=== PATIENT | male | born 1960 | race Caucasian/White ===

== ENCOUNTER 2017-08-15 19:22 | Observation (INO) ==
--- NOTE | 2017-08-15 19:40 | Emergency Department Note ---
Disposition Clinical Impression: Acute bronchitis with bronchospasm, Hypokalemia Disposition: Admitted As Inpatient Condition: Good Referrals: Miriam Garcia CNP [Primary Care Provider] - Forms: ED Satisfaction Letter Time of Disposition: 22:24 URI/Sore Throat HPI - General Chief Complaint: ED Upper Respiratory Infection Stated Complaint: back pain, cough, congestion Time Seen by Provider: 08/15/17 19:35 Source: patient, EMS Mode of arrival: ambulatory Limitations: no limitations Nursing Notes Reviewed: Yes Vital Signs Reviewed: Yes - History of Present Illness HPI Narrative: 56-year-old white male who presents complaining of cough and difficulty breathing for 4 days. He states his chest feels congested. He states he is coughing up thick white yellowish sputum. He states last night he felt like he had a fever, he was chilling, and sweating. No nasal congestion. No sore throat or earache. He denies chest pain. He has some pain in his mid back. Worse with coughing. He has a mechanical aortic valve, and is on Coumadin. Pt Subjective Complaint: fever (Reactive), cough Onset (ago): day(s) (4) Duration: intermittent Severity: moderate Improves with: nothing Worsens with: nothing If sputum, description: yellow Context: multiple patients with similar complaints Associated symptoms: Reports: fever (Subjective), chills Treatments prior to arrival: none - Related Data Home Medications Medication Instructions Recorded Confirmed Gabapentin [Neurontin] 300 mg PO TID 04/27/15 08/15/17 Metoprolol [Lopressor] 100 mg PO BID 04/27/15 08/15/17 Warfarin [Coumadin] 6 mg PO 1800 04/27/15 08/15/17 Zolpidem [Ambien] 10 mg PO HS 04/27/15 08/15/17 Magnesium Oxide [Magnesium] 400 mg PO DAILY 04/19/16 08/15/17 Paroxetine [Paxil] 20 mg PO DAILY 04/19/16 08/15/17 Warfarin [Coumadin] 3 mg PO 1800 08/14/16 08/15/17 Baclofen 20 mg PO TID 08/15/17 08/15/17 Isosorbide DInitrate [Isosorbide 5 mg PO BID 08/15/17 08/15/17 Dinitrate] Mometasone/Formoterol [Dulera 100 1 puff IH BID 08/15/17 08/15/17 Mcg/5 Mcg Inhaler] Renal Vitamin [Renal Caps Softgel] 1 mg PO DAILY 08/15/17 08/15/17 amLODIPine [Norvasc] 5 mg PO DAILY 08/15/17 08/15/17 Allergies Allergy/AdvReac Type Severity Reaction Status Date / Time morphine AdvReac Palpitation Verified 07/22/17 15:24 s All systems ED: reviewed and negative except as stated. Constitutional: Reports: fever, chills Eyes: Denies: eye discharge ENT ED: Denies: ear pain, throat pain Cardiovascular: Denies: chest pain, palpitations Respiratory: Reports: cough, dyspnea, sputum production Gastrointestinal: Reports: nausea. Denies: abdominal pain, vomiting, diarrhea Genitourinary: Denies: urgency, dysuria, frequency Musculoskeletal: Reports: back pain Neurological: Denies: headache, weakness, numbness, paresthesias URI PMH - Past Medical History Medical history: Reports: hypertension Surgical history: Reports: appendectomy, coronary bypass (CABG), heart valve replacement Psychiatric history: Reports: depression - Social History Smoking Status: Never smoker Alcohol use: Reports: rarely Drug use: Reports: none Physical Exam - General Limitations: no limitations General appearance: alert, in no apparent distress - Head Head exam: atraumatic, normocephalic - Eye Eye exam: Present: PERRL, EOMI. Absent: scleral icterus, conjunctival injection - ENT ENT exam: normal oropharynx, mucous membranes moist, TM's normal bilaterally - Neck Neck exam: Present: normal inspection, full ROM, trachea midline. Absent: tenderness, lymphadenopathy - Chest Chest inspection: Present: normal inspection, symmetric chest wall rise - Respiratory Respiratory exam: Present: other (Decreased breath sounds in the right base and midlung field posteriorly. Basilar rales bilaterally.). Absent: respiratory distress, wheezes - Cardiovascular Cardiovascular exam: Present: regular rate, normal rhythm, normal heart sounds - Abdominal Exam Abdominal exam: Present: soft, Non-Tender, normal bowel sounds. Absent: organomegaly, mass - Extremities Exam Extremities exam: Present: normal inspection, full ROM, normal capillary refill. Absent: pedal edema, calf tenderness - Back Exam Back exam: Absent: CVA tenderness (R), CVA tenderness (L) - Neurological Exam Neurological exam: Present: alert, oriented X3. Absent: motor sensory deficit - Psychiatric Psychiatric exam: Present: normal affect, normal mood - Skin Skin exam: Present: warm, dry, intact, normal color. Absent: cyanosis, diaphoresis Course - Reevaluation(s) Reevaluation #1: Discussed with Dr. Martinez. Accepts admission. Time: 22:24 Vital Signs Temperature 97.0 F L 08/15/17 19:22 Pulse Rate 91 08/15/17 19:22 Respiratory Rate 18 08/15/17 19:22 Blood Pressure 137/92 08/15/17 19:22 O2 Sat by Pulse Oximetry 95 08/15/17 19:22 Temperature 97.0 F L 08/15/17 19:22 Pulse Rate 88 08/15/17 21:43 Respiratory Rate 16 08/15/17 21:43 Blood Pressure 135/77 08/15/17 21:43 O2 Sat by Pulse Oximetry 93 08/15/17 21:43 Oxygen Delivery Oxygen Delivery Room Air Upper Respiratory Infection - MDM Narrative Medical decision making narrative: Differential includes but is not limited to congestive heart failure, pneumonia , bronchitis, URI, pleural effusion - Lab Data Lab results reviewed: Yes I reviewed the patient's lab results. Result diagrams: 08/15/17 19:45 08/15/17 19:45 Lab Results 08/15/17 08/15/17 08/15/17 Range/Units 19:45 19:45 19:45 WBC 9.4 (4.3-11.1) K/mcL RBC 5.57 H (4.19-5.50) M/mcL Hgb 16.0 (12.9-16.9) g/dL Hct 46.6 (37.5-50.1) % MCV 83.7 (83.0-100.0) fL MCH 28.7 (28.0-33.3) pg MCHC 34.3 (31.6-35.5) g/dL RDW 14.9 H (11.5-14.5) % Plt Count 140 (140-400) K/mcL MPV 12.1 (9.4-12.4) fL Immature Gran % 0.3 (0-4) % Seg Neutrophils % 67.6 % Lymphocytes % 14.7 % Monocytes % 16.9 % Eosinophils % 0.2 % Basophils % 0.3 % Neutrophils # 6.4 (1.6-8.9) K/mcL Lymphocytes # 1.4 (0.6-4.6) K/mcL Monocytes # 1.6 H (0.0-1.3) K/mcL Eosinophils # 0.0 (0.0-0.6) K/mcL Basophils # 0.0 (0.0-0.2) K/mcL PT (9.4-12.1) Seconds INR Sodium 141 (136-145) mEq/L Potassium 3.1 L (3.5-4.5) mEq/L Chloride 108 (98-109) mEq/L Carbon Dioxide 21 (19-29) mEq/L BUN 16 (8-26) mg/dL Creatinine 1.22 (0.72-1.25) mg/dL Est GFR ( Amer) > 60 (> 60) Est GFR (Non-Af Amer) > 60 (> 60) BUN/Creatinine Ratio 13 (6-26) Glucose 126 H (70-99) mg/dL Calculated Osmolality 295 (280-300) Lactic Acid 1.4 (0.5-2.2) mmol/L Calcium 9.3 (8.6-10.8) mg/dL Total Bilirubin 0.8 (0.2-1.2) mg/dL AST 55 H (5-34) Units/L ALT 52 (0-55) Units/L Alkaline Phosphatase 72 (38-126) Units/L Troponin I (0-0.03) ng/mL B-Natriuretic Peptide (0-100) pg/mL Serum Total Protein 7.9 (6.0-8.3) g/dL Albumin 3.6 (3.5-5.0) g/dL Globulin 4.3 H (2.4-3.5) g/dL Albumin/Globulin Ratio 0.8 L (1.1-2.2) 08/15/17 08/15/17 08/15/17 Range/Units 19:45 19:45 19:45 WBC (4.3-11.1) K/mcL RBC (4.19-5.50) M/mcL Hgb (12.9-16.9) g/dL Hct (37.5-50.1) % MCV (83.0-100.0) fL MCH (28.0-33.3) pg MCHC (31.6-35.5) g/dL RDW (11.5-14.5) % Plt Count (140-400) K/mcL MPV (9.4-12.4) fL Immature Gran % (0-4) % Seg Neutrophils % % Lymphocytes % % Monocytes % % Eosinophils % % Basophils % % Neutrophils # (1.6-8.9) K/mcL Lymphocytes # (0.6-4.6) K/mcL Monocytes # (0.0-1.3) K/mcL Eosinophils # (0.0-0.6) K/mcL Basophils # (0.0-0.2) K/mcL PT 30.0 H (9.4-12.1) Seconds INR 2.7 Sodium (136-145) mEq/L Potassium (3.5-4.5) mEq/L Chloride (98-109) mEq/L Carbon Dioxide (19-29) mEq/L BUN (8-26) mg/dL Creatinine (0.72-1.25) mg/dL Est GFR ( Amer) (> 60) Est GFR (Non-Af Amer) (> 60) BUN/Creatinine Ratio (6-26) Glucose (70-99) mg/dL Calculated Osmolality (280-300) Lactic Acid (0.5-2.2) mmol/L Calcium (8.6-10.8) mg/dL Total Bilirubin (0.2-1.2) mg/dL AST (5-34) Units/L ALT (0-55) Units/L Alkaline Phosphatase (38-126) Units/L Troponin I 0.03 (0-0.03) ng/mL B-Natriuretic Peptide 11 (0-100) pg/mL Serum Total Protein (6.0-8.3) g/dL Albumin (3.5-5.0) g/dL Globulin (2.4-3.5) g/dL Albumin/Globulin Ratio (1.1-2.2) 08/15/17 Range/Units 21:37 WBC (4.3-11.1) K/mcL RBC (4.19-5.50) M/mcL Hgb (12.9-16.9) g/dL Hct (37.5-50.1) % MCV (83.0-100.0) fL MCH (28.0-33.3) pg MCHC (31.6-35.5) g/dL RDW (11.5-14.5) % Plt Count (140-400) K/mcL MPV (9.4-12.4) fL Immature Gran % (0-4) % Seg Neutrophils % % Lymphocytes % % Monocytes % % Eosinophils % % Basophils % % Neutrophils # (1.6-8.9) K/mcL Lymphocytes # (0.6-4.6) K/mcL Monocytes # (0.0-1.3) K/mcL Eosinophils # (0.0-0.6) K/mcL Basophils # (0.0-0.2) K/mcL PT (9.4-12.1) Seconds INR Sodium (136-145) mEq/L Potassium (3.5-4.5) mEq/L Chloride (98-109) mEq/L Carbon Dioxide (19-29) mEq/L BUN (8-26) mg/dL Creatinine (0.72-1.25) mg/dL Est GFR ( Amer) (> 60) Est GFR (Non-Af Amer) (> 60) BUN/Creatinine Ratio (6-26) Glucose (70-99) mg/dL Calculated Osmolality (280-300) Lactic Acid (0.5-2.2) mmol/L Calcium (8.6-10.8) mg/dL Total Bilirubin (0.2-1.2) mg/dL AST (5-34) Units/L ALT (0-55) Units/L Alkaline Phosphatase (38-126) Units/L Troponin I 0.03 (0-0.03) ng/mL B-Natriuretic Peptide (0-100) pg/mL Serum Total Protein (6.0-8.3) g/dL Albumin (3.5-5.0) g/dL Globulin (2.4-3.5) g/dL Albumin/Globulin Ratio (1.1-2.2) - Radiology Data Radiology results reviewed: Yes I reviewed the patient's radiology results. Impressions Chest X-Ray 08/15/17 19:36 IMPRESSION: Stable portable study. D/ / Joy Fitch Cha, MD / Joy Fitch Cha, MD Interpreting Provider: Joy Fitch Cha, MD - EKG Data EKG attestation: Yes I reviewed and interpreted this EKG. EKG results narrative: Sinus rhythm, rate of 87, left atrial enlargement, age indeterminant anterior [place] , inferior lateral ST segment depression consistent with ischemia. Rhythm strip shows a sinus rhythm with a rate of 87, [place] interval 124 ms, QRS 100 ms with no other ectopy as interpreted by me. This is compared to a tracing dated 04/28/15, the ST segment depression in the inferior laterally is slightly more pronounced.
[2017-08-15 19:52] LABS: Basophils % 0.3 %; Eosinophils % 0.2 %; Hematocrit 46.6 % (37.5-50.1); Immature Granulocytes % 0.3 % (0-4); Lymphocytes # 1.4 K/mcL (0.6-4.6); Lymphocytes % 14.7 %; Mean Corpuscular HGB Conc 34.3 g/dL (31.6-35.5); Mean Corpuscular Hemoglobin 28.7 pg (28.0-33.3); Mean Corpuscular Volume 83.7 fL (83.0-100.0); Mean Platelet Volume 12.1 fL (9.4-12.4); Monocytes # 1.6 K/mcL (0.0-1.3); Monocytes % 16.9 %; Neutrophils # 6.4 K/mcL (1.6-8.9); Platelet Count 140 K/mcL (140-400); Red Blood Count 5.57 M/mcL (4.19-5.50); Red Cell Distribution Width 14.9 % (11.5-14.5); Segmented Neutrophils % 67.6 %
[2017-08-15 20:01] LABS: INR 2.7
[2017-08-15 20:13] LABS: Alanine Aminotransferase 52 Units/L (0-55); Albumin 3.6 g/dL (3.5-5.0); Albumin/Globulin Ratio 0.8 (1.1-2.2); Alkaline Phosphatase 72 Units/L (38-126); Aspartate Amino Transferase 55 Units/L (5-34); BUN/Creatinine Ratio 13 (6-26); Bilirubin,Total 0.8 mg/dL (0.2-1.2); Blood Urea Nitrogen 16 mg/dL (8-26); Calcium 9.3 mg/dL (8.6-10.8); Carbon Dioxide 21 mEq/L (19-29); Chloride 108 mEq/L (98-109); Globulin 4.3 g/dL (2.4-3.5); Glucose 126 mg/dL (70-99); Osmolality,Calculated 295 (280-300); Potassium 3.1 mEq/L (3.5-4.5); Sodium 141 mEq/L (136-145); Total Protein 7.9 g/dL (6.0-8.3); eGFR For African Americans > 60 (> 60); eGFR For Non-African Americans > 60 (> 60)
[2017-08-15] MEDS ORDERED: Albuterol 2.5 MG/3 ML NEBULIZER IH ONE ×2 (20:18→22:22)
[2017-08-15] MEDS ORDERED: methylPREDNISolone 125 MG/2 ML VIAL IVP ONE (20:20)
[2017-08-15] MEDS ORDERED: Potassium Chloride Elixir 20 MEQ/15 ML UDC PO ONE ×2 (22:25→23:12)
[2017-08-15] MEDS ORDERED: Naloxone 0.4 MG/ML INJ IVP PRN (23:12)
[2017-08-16] MEDS: MethylPREDNISolone 40 MG/ML VIAL IVP SCH ×2 (00:02→06:03)
[2017-08-16] MEDS ORDERED: Dextrose Gel 15 GM PO PRN ×2 (00:17)
[2017-08-16] MEDS ORDERED: D5% in Water 1,000 ML IVC PRN (00:17)
[2017-08-16] MEDS ORDERED: *HR* Dextrose 50 % in Water (Syg) 50 ML SYRINGE IVP PRN (00:17)
[2017-08-16] MEDS: amLODIPine 5 MG TABLET PO SCH ×2 (00:52→08:07)
[2017-08-16] MEDS: Acetaminophen 325 MG TABLET PO PRN ×2 (00:52→18:56)
[2017-08-16] MEDS: Albuterol 2.5 MG/3 ML NEBULIZER IH SCH ×3 (00:53→10:38)
[2017-08-16] MEDS: Renal Vitamin 1 MG CAPSULE PO SCH (08:06)
[2017-08-16] MEDS: Baclofen 10 MG TABLET PO SCH ×3 (08:06→21:00)
[2017-08-16] MEDS: Gabapentin 300 MG CAPSULE PO SCH ×3 (08:06→21:00)
[2017-08-16] MEDS: Magnesium Oxide 400 MG TABLET PO SCH (08:06)
[2017-08-16] MEDS: Insulin LISPRO 300 UNITS/3 ML VIAL SQ SCH ×2 (08:07→11:43)
[2017-08-16] MEDS ORDERED: Ipratropium/Albuterol Neb 3 ML IH SCH (10:00)
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
[2017-08-16] MEDS ORDERED: Albuterol 2.5 MG/3 ML NEBULIZER IH PRN (11:34)
[2017-08-16] MEDS ORDERED: *HR* Warfarin 3 MG TABLET PO SCH (18:00)
--- NOTE | 2017-08-16 18:54 | Electrocardiograph Report ---
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
[2017-08-16] MEDS ORDERED: Insulin LISPRO 300 UNITS/3 ML VIAL SQ ONE (20:41)
[2017-08-16] MEDS ORDERED: Insulin LISPRO 300 UNITS/3 ML VIAL SQ SCH (21:00)
[2017-08-17 06:38] LABS: Basophils % 0.2 %; Hematocrit 44.5 % (37.5-50.1); Hemoglobin 14.7 g/dL (12.9-16.9); Immature Granulocytes % 0.5 % (0-4); Lymphocytes # 1.4 K/mcL (0.6-4.6); Mean Corpuscular Hemoglobin 28.3 pg (28.0-33.3); Mean Corpuscular Volume 85.7 fL (83.0-100.0); Mean Platelet Volume 12.7 fL (9.4-12.4); Monocytes # 1.1 K/mcL (0.0-1.3); Monocytes % 9.2 %; Platelet Count 144 K/mcL (140-400); Red Blood Count 5.19 M/mcL (4.19-5.50); Segmented Neutrophils % 79.1 %
[2017-08-17 06:42] LABS: Neutrophils # 9.7 K/mcL (1.6-8.9)
[2017-08-17 06:53] VITALS: BP 123/84
[2017-08-17 06:58] LABS: Alanine Aminotransferase 39 Units/L (0-55); Albumin 3.1 g/dL (3.5-5.0); Albumin/Globulin Ratio 0.8 (1.1-2.2); Alkaline Phosphatase 65 Units/L (38-126); Aspartate Amino Transferase 25 Units/L (5-34); BUN/Creatinine Ratio 23 (6-26); Bilirubin,Total 0.4 mg/dL (0.2-1.2); Blood Urea Nitrogen 30 mg/dL (8-26); Calcium 9.5 mg/dL (8.6-10.8); Carbon Dioxide 20 mEq/L (19-29); Chloride 112 mEq/L (98-109); Globulin 3.8 g/dL (2.4-3.5); Glucose 220 mg/dL (70-99); Magnesium 2.1 mg/dL (1.6-2.6); Osmolality,Calculated 307 (280-300); Potassium 3.7 mEq/L (3.5-4.5); Sodium 142 mEq/L (136-145); Total Protein 6.9 g/dL (6.0-8.3); eGFR For African Americans > 60 (> 60); eGFR For Non-African Americans 56 (> 60)
[2017-08-17 07:01] LABS: Platelet Estimate Normal (Normal)
[2017-08-17 07:21] LABS: Thyroid Stimulating Hormone 0.005 mcIU/mL (0.350-4.840)
[2017-08-17] MEDS: Gabapentin 300 MG CAPSULE PO SCH (07:51)
[2017-08-17] MEDS: amLODIPine 5 MG TABLET PO SCH (07:51)
[2017-08-17] MEDS: Renal Vitamin 1 MG CAPSULE PO SCH (07:52)
[2017-08-17] MEDS: Baclofen 10 MG TABLET PO SCH (07:52)
[2017-08-17] MEDS: Magnesium Oxide 400 MG TABLET PO SCH (07:52)
[2017-08-17 08:51] LABS: Hemoglobin A1C 7.7 %
--- NOTE | 2017-08-17 09:37 | Discharge Summary ---
Date of Encounter: 08/17/17 Time of Encounter: 09:25 - Discharge Diagnosis (1) Diarrhea Priority: Primary Status: Acute Qualifiers: Diarrhea type: unspecified type Qualified Code(s): R19.7 - Diarrhea, unspecified (2) Hypomagnesemia Priority: Secondary Status: Resolved (3) Hypothyroidism Priority: Secondary Status: Acute Qualifiers: Hypothyroidism type: postablative Qualified Code(s): E89.0 - Postprocedural hypothyroidism (4) Hypokalemia Priority: Secondary Status: Resolved (5) DM type 2 (diabetes mellitus, type 2) Priority: Secondary Status: Chronic Qualifiers: Diabetes mellitus complication status: with kidney complications Diabetes mellitus complication detail: with chronic kidney disease Diabetes mellitus jail insulin use: without terminal worker use Chronic kidney disease stage: stage 2 (mild) Qualified Code(s): E11.22 - Type 2 diabetes mellitus with diabetic chronic kidney disease; N18.2 - Chronic kidney disease, stage 2 (mild) ; N18.2 - Chronic kidney disease, stage 2 (mild) - Discharge Medications Prescriptions: Glimepiride [Amaryl] 1 mg PO DAILY #30 tablet Lisinopril [Zestril] 10 mg PO DAILY #30 tablet Home Medications: Gabapentin [Neurontin] 300 mg PO TID 04/27/15 [History] Metoprolol [Lopressor] 100 mg PO BID 04/27/15 [History] Warfarin [Coumadin] 6 mg PO 1800 04/27/15 [History] Zolpidem [Ambien] 10 mg PO HS 04/27/15 [History] Magnesium Oxide [Magnesium] 400 mg PO DAILY 04/19/16 [History] Paroxetine [Paxil] 20 mg PO DAILY 04/19/16 [History] Warfarin [Coumadin] 3 mg PO 1800 08/14/16 [History] Baclofen 20 mg PO TID 08/15/17 [History] Isosorbide DInitrate [Isosorbide Dinitrate] 5 mg PO BID 08/15/17 [History] Mometasone/Formoterol [Dulera 100 Mcg/5 Mcg Inhaler] 1 puff IH BID 08/15/17 [ History] Renal Vitamin [Renal Caps Softgel] 1 mg PO DAILY 08/15/17 [History] Glimepiride [Amaryl] 1 mg PO DAILY #30 tablet 08/17/17 [Rx] Lisinopril [Zestril] 10 mg PO DAILY #30 tablet 08/17/17 [Rx] Allergies/Adverse Reactions: 3 Allergy/AdvReac Type Severity Reaction Status Date / Time morphine AdvReac Palpitation Verified 07/22/17 15:24 s Date of admission: 08/15/17 22:42 Primary care physician: Miriam Garcia CNP - Patient Status Disposition: Home, Self-Care Condition: Good Functional capacity at discharge: independent ambulation Overall status at discharge: patient is progressing back to baseline - Discharge Instructions Follow Up With: Miriam Garcia CNP [Primary Care Provider] - 1 week - Diet and Activity Activity: resume usual activities as tolerated Diet: diabetic diet Hospital course: Mr. Cabrera is a 56 year old male who came to emergency room stating he had cough productive of white/yellow sputum, dyspnea, and diarrhea onset evening of August 12. When he did not have improvement after few days he decided to come to emergency room. He was evaluated and felt to have bronchitis. He was also found to have hypokalemia. He was admitted to [facility] for ongoing care needs. Initial orders were written by the emergency room physician. I saw him on August 16 and performed a history and physical. He remained afebrile during his hospital stay. I suspect he has viral bronchitis. Antibiotics will not be given at this time. He can use OTC antitussive medication as needed. TSH returned suppressed at 0.005. He reported he was taking Synthroid following post-ablation HAMMONDS for hyperthyroidism. I instructed him to discontinue Synthroid and his PCP can monitor TSH and restart lower dose Synthroid if indicated. Supplemental potassium was given and hypokalemia resolved. Hemoglobin A1c returned elevated at 7.7%. I explained to him he had diabetes. He will start Amaryl 1 mg daily. Metformin will not be used at this time because of diarrhea. If diarrhea remains resolved following discontinuation of Synthroid metformin could be given. Diabetic teaching will be done prior to discharge today. Lisinopril was started and amlodipine discontinued in view of his diabetes diagnoses. He will continue metoprolol as at home. Creatinine jw to 1.33 on day of discharge with estimated GFR 56. I suspect he has underlying chronic kidney disease stage 2-3. His PCP can monitor this. On August 17 he felt improved and wished to be discharged home. He will follow with his PCP Miriam Garcia CNP within 1 week. - Time Spent with Patient Total time spent providing and/or coordinating discharge services: - Constitutional Vitals: Temp Pulse Resp BP Pulse Ox 98.9 F 54 20 123/84 93 08/17/17 06:49 08/17/17 06:49 08/17/17 06:49 08/17/17 06:49 08/17/17 06:49 - VTE Reasons for not Prescribing Prophylaxis: Not indicated-Anticoagulated or INR therapeutic
[2017-08-17] MEDS ORDERED: *HR* Warfarin 3 MG TABLET PO SCH (18:00)
== END 2017-08-17 10:46 | disposition home or self-care (01) ==
LOC: INPPIK 19:22 → EMEROOPIK 19:22 → INPPIK 23:08
PROVIDERS: ADMIT Emergency Medicine; ATTEND Internal Medicine

== ENCOUNTER 2020-11-22 11:52 | Inpatient (IN) ==
[2020-11-22] MEDS ORDERED: 0.9 % Sodium Chloride 1,000 ML IVC ONE (12:04)
[2020-11-22 12:21] LABS: Basophils % 0.3 %; Eosinophils # 0.2 K/mcL (0.0-0.6); Eosinophils % 1.6 %; Hematocrit 48.2 % (37.5-50.1); Hemoglobin 15.7 g/dL (12.9-16.9); Immature Granulocytes % 0.5 % (0-4); Lymphocytes # 1.1 K/mcL (0.6-4.6); Mean Corpuscular HGB Conc 32.6 g/dL (31.6-35.5); Mean Corpuscular Hemoglobin 27.9 pg (28.0-33.3); Mean Corpuscular Volume 85.6 fL (83.0-100.0); Mean Platelet Volume 11.4 fL (9.4-12.4); Monocytes # 1.7 K/mcL (0.0-1.3); Monocytes % 12.9 %; Neutrophils # 10.2 K/mcL (1.6-8.9); Platelet Count 274 K/mcL (140-400); Red Blood Count 5.63 M/mcL (4.19-5.50); Red Cell Distribution Width 14.4 % (11.5-14.5); Segmented Neutrophils % 76.7 %; White Blood Count 13.3 K/mcL (4.3-11.1)
[2020-11-22 12:21] LABS: Bilirubin,Urine Negative (Negative); Blood,Urine Negative (Negative); Clarity,Urine Clear (Clear); Color,Urine Yellow (Yellow); Glucose,Urine (UA) >=1000 mg/dL (Normal); Ketones,Urine Negative (Negative); Leukocyte Esterase,Urine Negative (Negative); Nitrite,Urine Negative (Negative); Protein,Urine Trace mg/dL (Neg-Trace); Specific Gravity,Urine 1.015 (1.010-1.025); Urobilinogen,Urine Normal (Normal)
[2020-11-22 12:28] LABS: Hyaline Casts,Urine Few per lpf (None Seen); Mucus,Urine Few per lpf (None-Few); Squamous Epithelial Cell,Urine Few per hpf (None-Few); WBC,Urine 0-3 per hpf (0-3)
[2020-11-22 12:33] LABS: Activated Partial Thrombo Time 59.8 Seconds (26.0-36.0)
[2020-11-22] MEDS ORDERED: MetroNIDAZOLE 500 MG/100 ML 500 MG/100 ML BAG IVPB ONE (12:38)
[2020-11-22] MEDS ORDERED: *HR* HYDROmorphone (PF) 1 MG/ML SYRINGE IVP ONE (12:38)
[2020-11-22] MEDS ORDERED: Ondansetron 4 MG/2 ML VIAL IVP ONE (12:38)
[2020-11-22 12:39] LABS: Albumin 4.1 g/dL (3.5-5.7); Albumin/Globulin Ratio 1.1 (1.1-2.2); Bilirubin,Direct 0.2 mg/dL (0.0-0.2); Bilirubin,Indirect 0.6 mg/dL (0.0-1.0); Bilirubin,Total 0.8 mg/dL (0.3-1.0); Calcium 9.6 mg/dL (8.6-10.3); Globulin 3.9 g/dL (2.4-3.5); Potassium 4.3 mEq/L (3.5-5.1)
[2020-11-22] MEDS ORDERED: Insulin Regular, Human 100 UNIT/ML SUBQ ONE (12:41)
[2020-11-22 13:01] LABS: Prothrombin Time 50.7 Seconds (9.4-12.1)
[2020-11-22 13:02] LABS: INR 4.6
[2020-11-22] MEDS ORDERED: Naloxone 0.4 MG/ML INJ IVP PRN (15:51)
[2020-11-22] MEDS ORDERED: MOM Conc 10 ML UD.LIQ PO PRN (15:57)
[2020-11-22] MEDS ORDERED: Melatonin 3 MG TABLET PO PRN (15:57)
[2020-11-22] MEDS ORDERED: Acetaminophen 325 MG TABLET PO PRN (15:57)
[2020-11-22] MEDS ORDERED: Ondansetron 4 MG/2 ML VIAL IVP PRN (15:57)
[2020-11-22] MEDS: 0.9 % Sodium Chloride 1,000 ML IVC SCH (16:46)
[2020-11-22] MEDS: *HR* HYDROmorphone (PF) 1 MG/ML SYRINGE IVP PRN ×2 (16:51→20:57)
[2020-11-22] MEDS: PARoxetine 20 MG TABLET PO SCH (20:57)
[2020-11-22] MEDS: MetroNIDAZOLE 500 MG/100 ML 500 MG/100 ML BAG IVPB SCH (21:58)
[2020-11-23] MEDS: 0.9 % Sodium Chloride 1,000 ML IVC SCH (00:20)
[2020-11-23] MEDS: *HR* HYDROmorphone (PF) 1 MG/ML SYRINGE IVP PRN ×4 (05:50→22:54)
[2020-11-23] MEDS: MetroNIDAZOLE 500 MG/100 ML 500 MG/100 ML BAG IVPB SCH ×3 (05:52→21:52)
[2020-11-23 07:58] LABS: Basophils # 0.1 K/mcL (0.0-0.2); Basophils % 0.5 %; Eosinophils # 0.2 K/mcL (0.0-0.6); Eosinophils % 2.3 %; Hematocrit 39.5 % (37.5-50.1); Immature Granulocytes % 0.4 % (0-4); Lymphocytes % 10.3 %; Mean Corpuscular HGB Conc 31.9 g/dL (31.6-35.5); Mean Corpuscular Hemoglobin 27.6 pg (28.0-33.3); Mean Corpuscular Volume 86.6 fL (83.0-100.0); Monocytes # 1.3 K/mcL (0.0-1.3); Monocytes % 13.5 %; Neutrophils # 7.2 K/mcL (1.6-8.9); Platelet Count 210 K/mcL (140-400); Red Blood Count 4.56 M/mcL (4.19-5.50); Red Cell Distribution Width 14.5 % (11.5-14.5); White Blood Count 9.9 K/mcL (4.3-11.1)
[2020-11-23 08:15] LABS: Alanine Aminotransferase 10 Units/L (7-52); Albumin 3.2 g/dL (3.5-5.7); Albumin/Globulin Ratio 1.1 (1.1-2.2); Alkaline Phosphatase 48 Units/L (34-104); Aspartate Amino Transferase 13 Units/L (13-39); BUN/Creatinine Ratio 12 (6-26); Bilirubin,Total 0.7 mg/dL (0.3-1.0); Blood Urea Nitrogen 15 mg/dL (6-20); Calcium 8.3 mg/dL (8.6-10.3); Carbon Dioxide 26 mEq/L (23-29); Chloride 102 mEq/L (98-107); Globulin 2.9 g/dL (2.4-3.5); Glucose 204 mg/dL (70-105); Osmolality,Calculated 289 (280-300); Potassium 3.8 mEq/L (3.5-5.1); Sodium 136 mEq/L (136-145); Total Protein 6.1 g/dL (6.4-8.9); eGFR For African Americans > 60 (> 60); eGFR For Non-African Americans > 60 (> 60)
[2020-11-23 08:17] LABS: Hemoglobin 12.6 g/dL (12.9-16.9)
[2020-11-23 08:21] LABS: INR 4.7; Prothrombin Time 52.6 Seconds (9.4-12.1)
[2020-11-23] MEDS: Magnesium Oxide 400 MG TABLET PO SCH (09:39)
[2020-11-23] MEDS ORDERED: Ringers Solution, Lactated 1,000 ML IVC ONE ×2 (13:18→17:03)
[2020-11-23] MEDS ORDERED: *HR* HYDROmorphone (PF) 1 MG/ML SYRINGE IVP ONE (13:19)
[2020-11-23] MEDS: Ringers Solution, Lactated 1,000 ML IVC SCH ×2 (14:26→22:50)
[2020-11-23] MEDS ORDERED: Ibuprofen 400 MG TABLET PO PRN (17:23)
[2020-11-23] MEDS: PARoxetine 20 MG TABLET PO SCH (21:51)
[2020-11-24] MEDS: *HR* HYDROmorphone (PF) 1 MG/ML SYRINGE IVP PRN (03:15)
[2020-11-24] MEDS: MetroNIDAZOLE 500 MG/100 ML 500 MG/100 ML BAG IVPB SCH ×2 (05:48→13:13)
[2020-11-24] MEDS: Ringers Solution, Lactated 1,000 ML IVC SCH (05:52)
[2020-11-24 07:06] LABS: Basophils % 0.4 %; Eosinophils # 0.2 K/mcL (0.0-0.6); Eosinophils % 2.8 %; Hematocrit 37.4 % (37.5-50.1); Hemoglobin 12.2 g/dL (12.9-16.9); Immature Granulocytes % 0.4 % (0-4); Lymphocytes # 0.9 K/mcL (0.6-4.6); Lymphocytes % 13.3 %; Mean Corpuscular HGB Conc 32.6 g/dL (31.6-35.5); Mean Corpuscular Hemoglobin 27.7 pg (28.0-33.3); Mean Corpuscular Volume 84.8 fL (83.0-100.0); Mean Platelet Volume 11.5 fL (9.4-12.4); Monocytes % 13.4 %; Neutrophils # 4.9 K/mcL (1.6-8.9); Platelet Count 191 K/mcL (140-400); Red Blood Count 4.41 M/mcL (4.19-5.50); Segmented Neutrophils % 69.7 %; White Blood Count 7.1 K/mcL (4.3-11.1)
[2020-11-24 07:18] LABS: INR 4.2
[2020-11-24 07:25] VITALS: BP 103/63
[2020-11-24 07:26] LABS: Alanine Aminotransferase 10 Units/L (7-52); Albumin 2.9 g/dL (3.5-5.7); Alkaline Phosphatase 42 Units/L (34-104); Aspartate Amino Transferase 14 Units/L (13-39); BUN/Creatinine Ratio 9 (6-26); Bilirubin,Total 0.5 mg/dL (0.3-1.0); Blood Urea Nitrogen 10 mg/dL (6-20); Calcium 8.4 mg/dL (8.6-10.3); Carbon Dioxide 28 mEq/L (23-29); Chloride 103 mEq/L (98-107); Globulin 2.8 g/dL (2.4-3.5); Glucose 163 mg/dL (70-105); Magnesium 1.6 mg/dL (1.6-2.6); Osmolality,Calculated 287 (280-300); Phosphorous 2.5 mg/dL (2.7-4.5); Potassium 3.6 mEq/L (3.5-5.1); Sodium 137 mEq/L (136-145); Total Protein 5.7 g/dL (6.4-8.9); eGFR For African Americans > 60 (> 60); eGFR For Non-African Americans > 60 (> 60)
[2020-11-24 07:38] LABS: Prothrombin Time 46.8 Seconds (9.4-12.1)
[2020-11-24 07:46] LABS: Amphetamine Screen,Urine Negative ng/mL (Cutoff=1000); Barbiturate Screen,Urine Negative ng/mL (Cutoff=200); Benzodiazepines Screen,Urine Negative ng/mL (Cutoff=200); Cannabinoid Screen,Urine Negative ng/mL (Cutoff = 50); Cocaine Screen,Urine Negative ng/mL (Cutoff= 300); Opiate Screen,Urine Negative ng/mL (Cutoff=300); Phencyclidine Screen,Urine Negative ng/mL (Cutoff=25)
[2020-11-24] MEDS ORDERED: *HR* HYDROmorphone (PF) 1 MG/ML SYRINGE IVP PRN (08:20)
[2020-11-24] MEDS: Magnesium Oxide 400 MG TABLET PO SCH (09:22)
[2020-11-24] MEDS ORDERED: *HR* Phytonadione 5 MG TABLET PO ONE (11:04)
== END 2020-11-24 14:20 | disposition short-term general hospital (02) | DRG 244 ==
LOC: INPPIK 11:52 → EMEROOPIK 11:52 → INPPIK 15:38
PROVIDERS: ADMIT Internal Medicine; ATTEND Internal Medicine